=== PATIENT | male | born 1965 | race Caucasian/White ===

== ENCOUNTER → 2016-08-10 | Outpatient (CLI) | payer MEDICAID ==
[~2016-08-10] VITALS: Ht 177.8 cm; Wt 122.5 kg
[~2016-08-10] MED LIST: DIGO0.2570 PO; FURO40TA4 PO; GLIM1TAB2 PO; INSLANTI SC; LORA2TAB89 PO; LOSA25TA9 PO; METF-314 PO; METO-169 PO; WARF5TAB71 PO
[2016-08-10 12:00] VITALS: BP 121/79
[2016-08-10 12:35] VITALS: BP 126/73
[2016-08-10 17:15] LABS: Basophils # (auto) 0 uL; Basophils % (auto) 0.8 % (0.0-2.0); Eosinophils # (auto) 0.2 uL; Hematocrit 48.1 % (41.0-53.0); Hemoglobin 15.2 g/dL (13.5-17.5); Lymphocytes # (auto) 1.6 uL; Lymphocytes % (auto) 31.5 % (10.0-50.0); Mean Corpuscular Hgb Conc. 31.6 g/dL (32.0-36.0); Mean Corpuscular Volume 88.6 fL (80.0-100.0); Mean Platelet Volume 9.7 fL (7.4-10.4); Monocytes # (auto) 0.5 uL; Monocytes % (auto) 8.9 % (0.0-12.0); Neutrophils # (auto) 2.9 uL; Neutrophils % (auto) 55.8 % (37.0-80.0); Platelet Count (auto) 172 10^3/uL (140-450); Red Cell Distribution Width 16.1 % (11.6-16.0); White Blood Cell 5.2 10^3/uL (4.4-10.8)
[2016-08-10 17:25] LABS: BUN/Creatinine Ratio 12.5; Calcium 8.5 mg/dL (8.5-10.1); Potassium 4.2 mmol/L (3.5-5.1)
[2016-08-10 17:26] LABS: Partial Thromboplastin Time 28.4 sec (22.64-33.71)
[2016-08-10 17:31] LABS: INR 1.28 (0.9-1.15); Prothrombin Time 13.2 sec (9.37-12.3)
== END | disposition home or self-care (01) ==
LOC: Rad HDHVI 11:48
PROVIDERS: ATTEND Internal Medicine Cardiovascular Disease
DX: I10 Essential (primary) hypertension (principal); D64.9 Anemia, unspecified; R79.1 Abnormal coagulation profile
CPT/HCPCS: 36415; 71020; 80048; 85025; 85049; 85610; 85730; 93005; G0463

== ENCOUNTER → 2016-08-20 | Day surgery (SDC) | payer MEDICAID ==
[~2016-08-20] VITALS: Ht 177.8 cm; Wt 122.5 kg
[~2016-08-20] MED LIST changes: +FUROSEMIDE 40 MG/4 ML VIAL ONE; +LIDOCAINE 2%HCL (LOCAL ANESTH.) INJ 20ML MDV ONE; +MIDAZOLAM HCL 1MG/1ML-2 ML VIAL ONE; +VANCOMYCIN 1GM/250ML D5W 250 ML IV ONE; +VANCOMYCIN HCL 1000 MG VL IR ONE; +VANCOMYCIN HCL 1000 MG VL ONE; +ceFAZolin 1GM/50ML D5W 50 ML IV ONE; +fentaNYL CITRATE 100 MCG/2 ML VL ONE
== END | disposition home or self-care (01) ==
LOC: CATH 10:23
PROVIDERS: ATTEND Internal Medicine Cardiovascular Disease
DX: I42.0 Dilated cardiomyopathy (principal); I50.1 Left ventricular failure, unspecified; E66.9 Obesity, unspecified; I47.0 Re-entry ventricular arrhythmia; F41.9 Anxiety disorder, unspecified
CPT/HCPCS: 33249; C1769; C1887; C1898; J1940; J3010; J3370; J7030; 71010; 93005; 99152; J0690; J2250

== ENCOUNTER → 2017-02-05 | Outpatient (CLI) | payer MEDICAID ==
[~2017-02-05] MED LIST changes: -FUROSEMIDE 40 MG/4 ML VIAL ONE; -LIDOCAINE 2%HCL (LOCAL ANESTH.) INJ 20ML MDV ONE; -METF-314 PO; +METF-371 PO; -MIDAZOLAM HCL 1MG/1ML-2 ML VIAL ONE; -VANCOMYCIN 1GM/250ML D5W 250 ML IV ONE; -VANCOMYCIN HCL 1000 MG VL IR ONE; -VANCOMYCIN HCL 1000 MG VL ONE; -WARF5TAB71 PO; -ceFAZolin 1GM/50ML D5W 50 ML IV ONE; -fentaNYL CITRATE 100 MCG/2 ML VL ONE
== END | disposition home or self-care (01) ==
LOC: Rad HDHVI 10:49
PROVIDERS: ATTEND Internal Medicine Cardiovascular Disease
DX: I08.0 Rheumatic disorders of both mitral and aortic valves (principal)
CPT/HCPCS: 93306

== ENCOUNTER → 2017-12-07 | Outpatient (CLI) | payer MEDICAID | END | disposition home or self-care (01) | LOC: Rad HDHVI 09:50 | PROVIDERS: ATTEND Internal Medicine | DX: I07.1 Rheumatic tricuspid insufficiency (principal); I10 Essential (primary) hypertension; E78.5 Hyperlipidemia, unspecified; Z95.0 Presence of cardiac pacemaker; E11.9 Type 2 diabetes mellitus without complications | CPT/HCPCS: 93306 ==

== ENCOUNTER → 2017-12-16 | Outpatient (CLI) | payer MEDICAID ==
[~2017-12-16] VITALS: Ht 177.8 cm; Wt 118.4 kg
[~2017-12-16] MED LIST changes: +ADENOSINE 90 MG/30 ML INJ IV ONE; +ADENOSINE 99 MG in GIVE UN-DILUTED 0 ML IV ONE
== END | disposition home or self-care (01) ==
LOC: Rad HDHVI 09:10
PROVIDERS: ATTEND Internal Medicine Cardiovascular Disease
DX: I10 Essential (primary) hypertension (principal); E78.5 Hyperlipidemia, unspecified; R63.8 Other symptoms and signs concerning food and fluid intake; E11.9 Type 2 diabetes mellitus without complications; Z95.0 Presence of cardiac pacemaker; Z86.79 Personal history of other diseases of the circulatory system; Z95.810 Presence of automatic (implantable) cardiac defibrillator
CPT/HCPCS: 78452; 93005; 96374; 96375; A9500; J0153

== ENCOUNTER → 2018-06-27 | Outpatient (CLI) | payer MEDICAID ==
[~2018-06-27] MED LIST changes: -ADENOSINE 90 MG/30 ML INJ IV ONE; -ADENOSINE 99 MG in GIVE UN-DILUTED 0 ML IV ONE; +ATOR20TA50 PO; +INSUINJ7 SC; +LOSA25TA40 PO; -LOSA25TA9 PO; +METO5TAB2 PO; +OMEP20TA PO; +WARF1TAB36 PO
[2018-06-27 09:10] VITALS: BP 124/65
[2018-06-27 09:22] VITALS: BP 131/73
[2018-06-27 12:16] LABS: Basophils # (auto) 0.1 uL; Eosinophils # (auto) 0.2 uL; Lymphocytes # (auto) 2.7 uL; Mean Corpuscular Volume 81.5 fL (80.0-100.0); Monocytes # (auto) 0.5 uL; Neutrophils # (auto) 2.9 uL
[2018-06-27 12:19] LABS: Basophils % (auto) 0.9 % (0.0-2.0); Eosinophils % (auto) 3.1 % (0.0-7.0); Hematocrit 49.2 % (41.0-53.0); Hemoglobin 15.9 g/dL (13.5-17.5); Lymphocytes % (auto) 42.3 % (10.0-50.0); Mean Corpuscular Hemoglobin 26.4 pg (28.0-32.0); Mean Corpuscular Hgb Conc. 32.3 g/dL (32.0-36.0); Monocytes % (auto) 7.5 % (0.0-12.0); Neutrophils % (auto) 46.2 % (37.0-80.0); Nucleated Red Blood Cells % 1.4 %; Platelet Count (auto) 161 10^3/uL (140-450); Red Blood Cells 6.04 10^6/uL (4.5-5.90); Red Cell Distribution Width 17.4 % (11.8-14.3); White Blood Cell 6.3 10^3/uL (4.4-10.8)
[2018-06-27 12:29] LABS: INR 1.05 (0.9-1.15); Partial Thromboplastin Time 28.5 sec (23.78-33.04); Prothrombin Time 11.2 sec (9.27-12.13)
[2018-06-27 12:32] LABS: Calcium 9.2 mg/dL (8.5-10.1); Potassium 3.8 mmol/L (3.5-5.1)
[2018-06-27 12:38] LABS: BUN/Creatinine Ratio 12.4
== END | disposition home or self-care (01) ==
LOC: Rad HDHVI 08:55
PROVIDERS: ATTEND Internal Medicine
DX: Z01.818 Encounter for other preprocedural examination (principal); D64.9 Anemia, unspecified; I51.7 Cardiomegaly; I70.0 Atherosclerosis of aorta; K44.9 Diaphragmatic hernia without obstruction or gangrene; R79.1 Abnormal coagulation profile; I10 Essential (primary) hypertension; R94.31 Abnormal electrocardiogram [ECG] [EKG]
CPT/HCPCS: 36415; 71046; 80048; 85025; 85610; 85730; 93005; G0463

== ENCOUNTER 2023-09-14 10:20 | Emergency (ER) | payer MEDICAID, OTHER ==
[~2023-09-14] VITALS: Ht 177.8 cm; Wt 109.0 kg
[~2023-09-14 10:20] MED LIST changes: -GLIM1TAB2 PO; +LOSA25TA15 PO; -LOSA25TA40 PO; -METF-371 PO; -METO-169 PO; +METO-289 PO; -WARF1TAB36 PO; +WARF4TAB70 PO
[2023-09-14 10:50] VITALS: O2SAT 90
[2023-09-14 12:00] VITALS: O2SAT 92
[2023-09-14] MEDS: ONDANSETRON HCL 4 MG/2 ML VIAL IV ONE (13:22)
[2023-09-14] MEDS: MORPHINE SULFATE 4 MG/ML SYR/VIAL IV ONE (13:23)
[2023-09-14 13:53] VITALS: BP 98/56; PULSE 62; RESP 18
[2023-09-14] MEDS ORDERED: TRAM50TA2 PO (14:00)
== END 2023-09-14 15:14 | disposition home or self-care (01) ==
LOC: EDBD 10:20 → ER 10:20
DX: S70.02XA Contusion of left hip, initial encounter (principal); S60.221A Contusion of right hand, initial encounter; S09.90XA Unspecified injury of head, initial encounter; I10 Essential (primary) hypertension; E11.9 Type 2 diabetes mellitus without complications; E78.5 Hyperlipidemia, unspecified; I48.91 Unspecified atrial fibrillation; Z95.0 Presence of cardiac pacemaker; Z79.4 Long term (current) use of insulin; Z79.01 Long term (current) use of anticoagulants; Z79.899 Other long term (current) drug therapy; V89.2XXA Person injured in unspecified motor-vehicle accident, traffic, initial encounter; Y93.89 Activity, other specified; Y92.89 Other specified places as the place of occurrence of the external cause; Y99.8 Other external cause status
CPT/HCPCS: 70450; 72125; 72192; 73120; 73502; 96374; 96375; 99285; J2270; J2405

== ENCOUNTER 2024-01-31 06:10 | Inpatient (IN) | payer MEDICAID, OTHER ==
[~2024-01-31] VITALS: Ht 175.3 cm; Wt 112.8 kg
[~2024-01-31 06:10] MED LIST changes: +APIX5TAB PO; +INSU1INJ19 SC; +LOSA-533 PO; -LOSA25TA15 PO; +TRAM50TA2 PO
[2024-01-31 07:03] LABS: Basophils # (auto) 0.1 10 ^3/uL (0-0.2); Hemoglobin 12.5 g/dL (13.5-17.5); Mean Corpuscular Volume 79.1 fL (80.0-100.0); Monocytes # (auto) 0.7 10 ^3/uL (0-1.3)
[2024-01-31 07:05] LABS: Basophils % (auto) 0.9 % (0.0-2.0); Eosinophils # (auto) 0.4 10 ^3/uL (0-0.8); Eosinophils % (auto) 5.3 % (0.0-7.0); Hematocrit 37.8 % (41.0-53.0); Lymphocytes # (auto) 1.8 10 ^3/uL (0.4-5.4); Lymphocytes % (auto) 26.2 % (10.0-50.0); Mean Corpuscular Hemoglobin 26.1 pg (28.0-32.0); Monocytes % (auto) 9.7 % (0.0-12.0); Neutrophils % (auto) 57.9 % (37.0-80.0); Nucleated Red Blood Cells % 0.1 %; Red Blood Cells 4.78 10^6/uL (4.5-5.90); White Blood Cell 6.9 10^3/uL (4.4-10.8)
[2024-01-31] MEDS: dilTIAZem 25 MG/5 ML VIAL IV ONE ×2 (07:13)
[2024-01-31 07:14] LABS: Alanine Aminotransferase 19 U/L (7-40); Albumin 3.9 g/dL (3.2-4.8); Alkaline Phosphatase 82 U/L (46-116); Anion Gap 9 (5-15); Aspartate Aminotransferase 18 U/L (13-40); BUN/Creatinine Ratio 14.8 (10.0-20.0); Blood Urea Nitrogen 12 mg/dL (9-23); Calcium 9.7 mg/dL (8.7-10.4); Carbon Dioxide 23 mmol/L (20-30); Chloride 108 mmol/L (98-107); Glucose 142 mg/dL (74-106); Potassium 3.7 mmol/L (3.5-5.1); Sodium 140 mmol/L (136-145)
[2024-01-31 07:15] LABS: Bilirubin, Total 0.8 mg/dL (0.2-1.0); Total Protein 6.4 g/dL (5.7-8.2)
[2024-01-31 07:27] VITALS: PULSE 105; RESP 19; O2SAT 95
[2024-01-31] MEDS ORDERED: NITROGLYCERIN 0.4 MG SL TAB SL PRN (08:45)
[2024-01-31] MEDS ORDERED: ACETAMINOPHEN 325 MG TAB PO PRN (08:45)
[2024-01-31] MEDS: SODIUM CHLORIDE 0.9% 1,000 ML IV SCH (08:45)
[2024-01-31] MEDS ORDERED: MORPHINE SULFATE INJ 2 MG/ml SYRG IV PRN (08:45)
[2024-01-31] MEDS ORDERED: DEXTROSE (50%) 50ML SYRG IV PRN (09:00)
[2024-01-31] MEDS ORDERED: traMADol HCL 50 MG TAB PO PRN (09:00)
[2024-01-31 09:23] LABS: INR 1.14 (0.9-1.15)
[2024-01-31] MEDS: ATORVASTATIN 20 MG TAB PO SCH (10:00)
[2024-01-31] MEDS ORDERED: PATIENTS OWN MEDICATION (Omeprazole (Gnp Omeprazole) 40 MG) PO SCH ×2 (10:00)
[2024-01-31] MEDS ORDERED: DIGOXIN 0.25 MG PO SCH ×2 (10:00)
[2024-01-31 10:08] LABS: Triglycerides 68 mg/dL (< 150)
[2024-01-31 10:09] LABS: LDL Cholesterol 44 mg/dL (< 100)
[2024-01-31 10:10] LABS: Cholesterol 81 mg/dL (< 200); HDL Cholesterol 35 mg/dL (40-59)
[2024-01-31] MEDS: FUROSEMIDE 20 MG/2 ML VIAL IV ONE (10:45)
[2024-01-31] MEDS: METOPROLOL SUCCINATE XL 50 MG TAB PO SCH (10:45)
[2024-01-31] MEDS: LOSARTAN POTASSIUM 25 MG TAB PO SCH (10:45)
[2024-01-31] MEDS: PANTOPRAZOLE 40 MG TAB PO SCH (10:45)
[2024-01-31] MEDS: DIGOXIN 0.125 MG TAB PO SCH (10:45)
[2024-01-31] MEDS ORDERED: METOCLOPRAMIDE HCL 5 MG PO SCH ×2 (11:30)
[2024-01-31] MEDS: InsuLIN REG 1unit/0.01ml Soln (100units/ml) SC SCH (11:30)
[2024-01-31] MEDS: ACCU-CHEK COMFORT CURVE STRIP VI SCH (11:37)
[2024-01-31] MEDS: METOCLOPRAMIDE HCL 10 MG TAB PO SCH (11:45)
[2024-01-31] MEDS ORDERED: WARFARIN SODIUM 1 MG TAB PO SCH ×2 (18:00)
[2024-01-31] MEDS: FUROSEMIDE 20 MG/2 ML VIAL IV SCH (18:27)
[2024-01-31 19:20] VITALS: PULSE 136; RESP 14; O2SAT 98
[2024-01-31 21:40] LABS: Amphetamine Screen, Urine Neg (NEGATIVE); Barbiturate Scree,Urine Neg (NEGATIVE); Benzodiazephine Screen, Urine Neg (NEGATIVE); Cocaine Screen, Urine Neg (NEGATIVE); Opiate Scree,Urine Neg (NEGATIVE); Phencyclidine Screen, Urine Neg (NEGATIVE)
[2024-01-31 21:41] LABS: Cannabinoid Screen, Urine Neg (NEGATIVE)
[2024-01-31] MEDS ORDERED: LORAZEPAM 2 MG PO SCH ×2 (22:00)
[2024-01-31] MEDS ORDERED: ENOXAPARIN SOD 100 MG/1 ML SYRINGE SC SCH (22:00)
[2024-01-31] MEDS: LORazepam 0.5 MG TAB PO SCH (22:46)
[2024-01-31] MEDS: ENOXAPARIN SOD 120 MG/0.8 ML SYRINGE SC SCH (22:55)
[2024-01-31 22:56] VITALS: BP_SYST 103; BP_SYST 108; BP_DIAS 72; BP_DIAS 81; PULSE 119; PULSE 54; RESP 16; RESP 18; TEMP 97.9; TEMP 98.1; O2SAT 100; O2SAT 99
[2024-02-01] VITALS (13 sets, daily range): BP systolic 89–116; BP diastolic 41–81; PULSE 51–143; RESP 17–22; TEMP 97.8–98.3; O2SAT 93–100
[2024-02-01 06:33] LABS: Basophils # (auto) 0.1 10 ^3/uL (0-0.2); Eosinophils # (auto) 0.3 10 ^3/uL (0-0.8); Lymphocytes # (auto) 1.7 10 ^3/uL (0.4-5.4); Monocytes # (auto) 0.6 10 ^3/uL (0-1.3)
[2024-02-01 06:38] LABS: Basophils % (auto) 1.2 % (0.0-2.0); Eosinophils % (auto) 4.6 % (0.0-7.0); Hematocrit 37.8 % (41.0-53.0); Hemoglobin 12.4 g/dL (13.5-17.5); Lymphocytes % (auto) 26.1 % (10.0-50.0); Mean Corpuscular Hemoglobin 25.8 pg (28.0-32.0); Mean Corpuscular Hgb Conc. 32.8 g/dL (32.0-36.0); Mean Corpuscular Volume 78.8 fL (80.0-100.0); Monocytes % (auto) 8.5 % (0.0-12.0); Neutrophils % (auto) 59.6 % (37.0-80.0); Nucleated Red Blood Cells % 0.1 %; Red Blood Cells 4.79 10^6/uL (4.5-5.90); Red Cell Distribution Width 17.8 % (11.8-14.3); White Blood Cell 6.7 10^3/uL (4.4-10.8)
[2024-02-01 06:40] LABS: Alanine Aminotransferase 17 U/L (7-40); Albumin 3.8 g/dL (3.2-4.8); Alkaline Phosphatase 78 U/L (46-116); Anion Gap 5 (5-15); Aspartate Aminotransferase 18 U/L (13-40); BUN/Creatinine Ratio 12.8 (10.0-20.0); Blood Urea Nitrogen 12 mg/dL (9-23); Calcium 9.1 mg/dL (8.7-10.4); Carbon Dioxide 27 mmol/L (20-30); Chloride 108 mmol/L (98-107); Glucose 85 mg/dL (74-106); Potassium 3.7 mmol/L (3.5-5.1); Sodium 140 mmol/L (136-145)
[2024-02-01 06:41] LABS: Bilirubin, Total 1.2 mg/dL (0.2-1.0); Total Protein 6.1 g/dL (5.7-8.2)
[2024-02-01] MEDS ORDERED: POTA-36 PO (09:07)
[2024-02-01] MEDS ORDERED: ZOLP10TA6 PO (09:07)
[2024-02-01] MEDS: DIGOXIN (250MCG/ML) 2 ML AMPULE IV ONE (14:49)
[2024-02-02] VITALS (8 sets, daily range): BP systolic 97–136; BP diastolic 67–96; PULSE 55–142; RESP 16–20; TEMP 97.2–97.7; O2SAT 95–100
[2024-02-02] MEDS: traMADol HCL 50 MG TAB PO PRN (02:26)
[2024-02-02] MEDS ORDERED: ONDANSETRON HCL 4 MG/2 ML VIAL IV PRN (04:15)
[2024-02-02] MEDS: SPIRONOLACTONE 25 MG TAB PO SCH (10:14)
[2024-02-02] MEDS: EMPAGLIFLOZIN 10 MG TAB PO SCH (12:00)
[2024-02-02] MEDS ORDERED: ALBU108A5 INH (14:09)
[2024-02-02] MEDS ORDERED: FERR325T20 PO (14:09)
[2024-02-02] MEDS ORDERED: PANT40TA2 PO (14:09)
[2024-02-02] MEDS ORDERED: PANC3600 PO (14:09)
[2024-02-02] MEDS: DIGOXIN 0.125 MG TAB PO ONE (15:46)
[2024-02-02] MEDS: APIXABAN 5 MG TAB PO SCH (22:10)
[2024-02-02] MEDS: ATORVASTATIN 20 MG TAB PO SCH (22:10)
[2024-02-03 01:00] VITALS: BP 93/61; PULSE 78; RESP 17; TEMP 98; O2SAT 94
[2024-02-03 05:00] VITALS: BP 97/63; PULSE 72; RESP 17; TEMP 97.9; O2SAT 94
[2024-02-03 08:00] VITALS: PULSE 82
[2024-02-03 09:00] VITALS: BP 112/83; PULSE 70; RESP 16; TEMP 98.8; O2SAT 95
[2024-02-03 09:31] LABS: Hepatitis B Surface Antigen Negative (Negative)
[2024-02-03 09:51] LABS: Hepatitis C Antibody Negative (Negative)
[2024-02-03] MEDS: DIGOXIN 0.125 MG TAB PO SCH (10:16)
[2024-02-03 13:00] VITALS: BP 107/68; PULSE 120; RESP 16; TEMP 98.2; O2SAT 95
[2024-02-03] MEDS ORDERED: DIGO0.12 PO (13:23)
[2024-02-03] MEDS ORDERED: SPIR25TA PO (13:23)
[2024-02-03] MEDS ORDERED: EMPA1TAB PO (13:23)
[2024-02-03 17:00] VITALS: BP 106/66; PULSE 106; RESP 16; TEMP 97.8; O2SAT 98
== END 2024-02-03 18:48 | disposition home or self-care (01) | DRG 201 ==
LOC: ER 06:10 → TELE 08:48 → ER 08:48 → TELE-WESTW 22:55
PROVIDERS: ADMIT Nurse Practitioner Family; ATTEND Family Medicine
DX: I48.20 Chronic atrial fibrillation, unspecified (principal); I50.23 Acute on chronic systolic (congestive) heart failure; I42.0 Dilated cardiomyopathy; Z79.01 Long term (current) use of anticoagulants; I11.0 Hypertensive heart disease with heart failure; E11.9 Type 2 diabetes mellitus without complications; E78.00 Pure hypercholesterolemia, unspecified; E66.01 Morbid (severe) obesity due to excess calories; Z82.49 Family history of ischemic heart disease and other diseases of the circulatory system; Z95.810 Presence of automatic (implantable) cardiac defibrillator; Z68.36 Body mass index [BMI] 36.0-36.9, adult; G47.00 Insomnia, unspecified
CPT/HCPCS: 36415; 71045; 80053; 80061; 80307; 82962; 83036; 83735; 83880; 84443; 84484; 85025; 85610; 86803; 87340; 93005; 93306; 96374; 96375; 96376; 99291; G0378; J1815

== ENCOUNTER 2025-03-12 06:37 | Emergency (ER) | payer MEDICAID ==
[~2025-03-12] VITALS: Ht 177.8 cm; Wt 107.5 kg
[~2025-03-12 06:37] MED LIST changes: +ALBU108A5 INH; +DIGO0.12 PO; -DIGO0.2570 PO; +EMPA1TAB PO; +FERR325T20 PO; -INSLANTI SC; -INSUINJ7 SC; -METO-289 PO; -OMEP20TA PO; +PANC3600 PO; +PANT40TA2 PO; +POTA-36 PO; +SPIR25TA PO; -WARF4TAB70 PO; +ZOLP10TA6 PO
[2025-03-12 06:47] VITALS: BP 122/81; RESP 16; TEMP 98.9; O2SAT 94
--- NOTE | 2025-03-12 06:59 | ED.PDOC ---
HPI Comments This is a 59 year old male presenting to the ED with chief complaint of pacemaker problem. Patient reports that he had followed up with Dr. Simon regarding his pacemaker and he was advised to come to the ED for admission today to have his pacemaker replaced later on today. Patient relays that his pacemaker's battery is low. Patient denies any chest pain, SOB, dizziness, headache, or N/V. Chief Complaint: Palpitations Time Seen by MD: 06:57 Primary Care Provider: [facility] Notes: Nurses Notes, Medications, Allergies Allergies: Coded Allergies: NO KNOWN ALLERGIES (Unverified , 06/27/18) Home Meds Active Scripts Empagliflozin (Jardiance) 10 Mg Tab, 10 MG PO DAILY, #90 TAB Prov:ROGELIO BRADSHAW MD 02/03/24 Spironolactone (Aldactone) 25 Mg Tab, 1 TAB PO DAILY, #90 TAB 1 Refill Prov:ROGELIO BRADSHAW MD 02/03/24 Digoxin (Digoxin) 125 Mcg Tab, 125 MCG PO DAILY, #60 TAB Prov:ROGELIO BRADSHAW MD 02/03/24 Tramadol Hcl (Tramadol Hcl) 50 Mg Tab, 50 MG PO Q8HP PRN for 5 Days, #15 TAB Prov:EFREN ANGELA MD 09/14/23 Reported Medications Albuterol Sulfate (Albuterol Sulfate Hfa) 108 Mcg/Act Aer, 2 PUFF INH Q4HR PRN for WHEEZING/SHORTNESS OF BREATH 02/02/24 Pantoprazole Sodium Sesquihydr (Protonix) 40 Mg Tab, 1 TAB PO QAM 02/02/24 Ferrous Sulfate (Ferosul) 325 Mg Tab, 1 TAB PO DAILY 02/02/24 Pancrelipase (Lipase-Protease- (CREON) 36,000 Unt Cap, 1-2 CAP PO QID Take 1-2 capsules by mouth 4 times daily before each meal and snacks. 02/02/24 Insulin Glargine (Basaglar Kwikpen) 100 Unit/Ml Inj, 30 UNIT SC BID Inject 30 units under the skin every morning and 30 units under the skin every evening. 02/02/24 Apixaban Base (ELIQUIS) 5 Mg Tab, 1 TAB PO BID 02/01/24 Potassium Chloride (POTASSIUM CHLORIDE CR) 10 Meq Tb, 1 TAB PO BID, #30 TAB 5 Refills 02/01/24 Zolpidem Tartrate (Zolpidem Tartrate) 10 Mg Tab, 1 TAB PO QPM PRN for FOR INSOMNIA, #30 TAB 2 Refills 02/01/24 Losartan Potassium (Losartan Potassium) 25 Mg Tab, 1 TAB PO DAILY, #90 TAB 1 Refill 02/01/24 Atorvastatin Calcium (ATORVASTATIN CALCIUM) 20 Mg Tab, 1 TAB PO DAILY, #30 TAB 5 Refills 06/27/18 Metoclopramide Hcl (Metoclopramide Hcl) 5 Mg Tab, 5 MG PO AC for 30 Days, MG 06/27/18 Lorazepam (Ativan) 2 Mg Tab, 2 MG PO HS for ANXIETY, TAB 06/15/16 Furosemide (Furosemide) 40 Mg Tab, 40 MG PO BID PRN for LEG SWELLING Take 1 tablet by mouth in the morning, and 1 tablet by mouth by noon as needed for on the leg swelling with potassium. 02/24/16 Information Source: Patient Mode of Arrival: Ambulatory Severity: Moderate Timing: Hours Duration: Since onset Prehospital treatment: None Cardiac Risk Factors: HTN, Diabetes PE Risk Factors: None History of: None Past Medical History PAST MEDICAL HISTORY: AFIB, DM, High Lipids, HTN Surgical History: Hernia Repair, Pacemaker Family History Family History: Reviewed,noncontributory to illness Social History Smoker: Non-Smoker Alcohol: Denies ETOH Use Drugs: Denies Drug Use Lives In: Home Constitutional: denies: chills, diaphoresis, fatigue, fever, malaise, sweats, weakness, others EENTM: denies: blurred vision, double vision, ear bleeding, ear discharge, ear drainage, ear pain, ear ringing, eye pain, eye redness, hearing loss, mouth pain, mouth swelling, nasal discharge, nose bleeding, nose congestion, nose pain, photophobia, tearing, throat pain, throat swelling, voice changes, others Respiratory: denies: cough, hemoptysis, orthopnea, SOB at rest, shortness of breath, SOB with excertion, stridor, wheezing, others Cardiovascular: denies: chest pain, dizzy spells, diaphoresis, Dyspnea on exertion, edema, irregular heart beat, left arm pain, lightheadedness, palpitations, PND, syncope, others Gastrointestinal: denies: abdomen distended, abdominal pain, blood streaked bowels, constipated, diarrhea, dysphagia, difficulty swallowing, hematemesis, melena, nausea, poor appetite, poor fluid intake, rectal bleeding, rectal pain, vomiting, others Genitourinary: denies: burning, dysuria, flank pain, frequency, hematuria, incontinence, penile discharge, penile sore, pain, testicle pain, testicle swelling, urgency, others Neurological: denies: dizziness, fainting, headache, left sided numbness, left sided weakness, numbness, paresthesia, pre-existing deficit, right sided numbness, right sided weakness, seizure, speech problems, tingling, tremors, weakness, others Musculoskeletal: denies: back pain, gout, joint pain, joint swelling, muscle pain, muscle stiffness, neck pain, others Integumetry: denies: bruises, change in color, change in hair/nails, dryness, laceration, lesions, lumps, rash, wounds, others Allergic/Immunocompromised: denies: Difficulty Healing, Frequent Infections, Hives, Itching, others Hematologic/Lymphatic: denies: anemia, blood clots, easy bleeding, easy bruising, swollen glands, others Endocrine: denies: excessive hunger, excessive sweating, excessive thirst, excessive urination, flushing, intolerance to cold, intolerance to heat, unexplained weight gain, unexplained weight loss, others Psychiatric: denies: anxiety, bipolar disorder, depression, hopeless, panic disorder, schizophrenia, sleepless, suicidal, others All Other Systems: Reviewed and Negative Physical Exam General Appearance: Moderate Distress, Normal HEENT: Normal ENT Inspection, Pharynx Normal, TMs Normal Neck: Full Range of Motion, Non-Tender, Normal, Normal Inspection Respiratory: Chest Non-Tender, Lungs Clear, No Accessory Muscle Use, No Respiratory Distress, Normal Breath Sounds Cardiovascular: Irregular, No Edema, No JVD, No Murmur, No Gallop, Normal Peripheral Pulses Breast Exam: Deferred Gastrointestinal: No Organomegaly, Non Tender, No Pulsatile Mass, Normal Bowel Sounds, Soft Genitalia: Deferred Pelvic: Deferred Rectal: Deferred Extremities: No calf tenderness, Normal capillary refill, Normal inspection, Normal range of motion, Non-tender, No pedal edema Musculoskeletal : Apperance: Normal Neurologic: Alert, auricular therapist II-XII nml as Tested, No Motor Deficits, Normal Affect, Normal Mood, No Sensory Deficits Cerebellar Function: Normal Reflexes: Normal Skin: Dry, Normal Color, Warm Peripheral Pulses: 3+ Radial (R), 3+ Radial (L) Lymphatic: No Adenopathy EKG EKG : Pulse Rate (adult): 81 Cardiac Rhythm: Paced Was a procedure done? Was a procedure done?: No CP Differential Dx Differential Diagnosis: A-fib, A-Flutter, Angina, Anxiety / Panic Attack, Atrial Dysrhythmia, Electrolyte Disorder X-Ray, Labs, Meds, VS Vital Signs Date Time Temp Pulse Resp B/P (MAP) Pulse Ox O2 Delivery O2 Flow Rate FiO2 03/12/25 07:04 81 03/12/25 07:03 81 03/12/25 06:47 98.9 58 16 122/81 94 98.9 Patient alert. Came in because of pacemaker. Vitals stable. Answering questions. Complaining of having difficulty with his pacemaker. Denies chest pain. Denies shortness a breath. Reviewed his history. EKG reviewed does show paced rhythm. Explained to the patient. Continue monitoring. Time of 1ST Reevaluation: 07:56 Reevaluation 1ST: Unchanged Patient Education/Counseling: Diagnosis, Treatment Family Education/Counseling: No Family Present SEPSIS Sepsis Screen Date sepsis recognized/suspect: Mar 12, 2025 Time Sepsis recognized/suspect: 0650 Recent Procedure: No On Antibiotic Therapy: No Respiratory Rate >20: No Heart Rate >90: No Temp<36 C (96.8 F) or >38.3 C: No SBP <90 or MAP <65 mmHG: No New Acute Mental Status Change: No Is the patient on CPAP, BIPAP,: No Physician Orders Complete Blood Count (03/12/25 07:06) PTPTT (03/12/25 07:06) 0.9% Ns 30mls/Kg (03/12/25 07:15) Vital Signs Date Time Temp Pulse Resp B/P (MAP) Pulse Ox O2 Delivery O2 Flow Rate FiO2 03/12/25 07:04 81 03/12/25 07:03 81 03/12/25 06:47 98.9 58 16 122/81 94 98.9 Departure 1 Departure Time of Disposition: 07:13 Impression: Primary Impression: Uncontrolled diabetes mellitus Qualified Codes: E13.65 - Other specified diabetes mellitus with hyperglycemia Additional Impression: Paced cardiac rhythm Disposition: ADMITTED INPATIENT Admit to: Med Surg Condition: Guarded Critical Care Note Critical Care Time?: No Stability Stability form required: No Heart Score Heart Score: Heart Score Response (Comments) Value History Highly Suspicious 2 EKG Normal 0 Age 45-64 1 Risk Factors 1 or 2 risk factors 1 Troponin N/A 0 Total 4 I personally scribed for CHINA ROLLINS MD ([email or web address]) on 03/12/25 at 06:59. Electronically submitted by Ra Cuenca ([email or web address]). I personally scribed for CHINA ROLLINS MD ([email or web address]) on 03/12/25 at 07:03. Electronically submitted by Ra Cuenca ([email or web address]). CHINA ROLLINS MD Mar 12, 2025 06:59
[2025-03-12 07:04] VITALS: PULSE 81
[2025-03-12] MEDS ORDERED: SODIUM CHLORIDE 0.9% 1,000 ML IV ONE (07:15)
== END 2025-03-12 08:05 | disposition home or self-care (01) ==
LOC: ER 06:37
DX: E11.65 Type 2 diabetes mellitus with hyperglycemia (principal); E78.5 Hyperlipidemia, unspecified; I10 Essential (primary) hypertension; I48.91 Unspecified atrial fibrillation; Z79.899 Other long term (current) drug therapy; Z98.890 Other specified postprocedural states; Z79.84 Long term (current) use of oral hypoglycemic drugs; Z79.4 Long term (current) use of insulin; Z79.01 Long term (current) use of anticoagulants